=== PATIENT | female | born 1970 | race Caucasian/White ===

== ENCOUNTER 2024-07-02 00:33 | Day surgery (SDC) | payer OTHER, SELFPAY ==
[2024-06-24 11:18] VITALS: BMI 23.6
--- NOTE | 2024-07-01 14:44 | P.PNAN_ITS ---
Anes - Initial Pre Proc Eval Procedure: Operation Date: 07/02/24 12:30 Proposed Procedures p Screening Colonoscopy - Hernesto Conte MD Date/Time: 07/01/24 14:44 Surgeon: Hernesto Conte MD Pre Op Diagnosis: screening colon Patient Data Age: 53 Gender: F Height: 1.52 m Weight: 55 kg Allergies Allergy/AdvReac Type Severity Reaction Status Date / Time No Known Allergies Allergy Verified 07/02/24 11:25 Home Medications ?Medication ?Instructions ?Recorded ?Confirmed ?Type levothyroxine 125 mcg tablet 125 mcg PO DAILY 06/24/24 07/02/24 History Patient hx anesthesia problems: none Family hx anesthesia problems: none Results Review: All pre-operative results and documents have been reviewed as part of the pre- operative evaluation. [facility] Past Medical History Medical History (Updated 07/01/24 @ 14:44 by Baldomero Weaver DO) Hypothyroidism Asthma Social History Social History Smoking packs per day: 0.5 Smoking cigarettes per day: 10.0 Years smoked: 30 Smoking pack-years: 15.00 Smoking status: Current every day smoker Tobacco type: cigarettes Alcohol intake: current Alcohol use details: 7 Spiritual care concerns: No Anes - Eval Final PreProcedure Day of Procedure 07/01/24 14:44 Patient weight: obese Heart: regular rate and rhythm Lungs: clear to auscultation Airway: Mallampati scale class II Neurological: alert and oriented Last oral intake: >/= 8 hours ASA classification: III Emergent: no Anesthetic plan: proceed Anesthesia type and monitoring: general GIVS and standard monitoring Results Review: All pre-operative results and documents have been reviewed as part of the pre- operative evaluation. Informed Consent: The patient's anesthetic plan and its attendant risks and benefits were discussed with the patient/family/POA. Questions were solicited and answers provided to the satisfaction of the patient/family/POA.
--- OUTSIDE RECORDS SUMMARY | 2024-07-02 00:35 | XMS_ITS | Clinical Summary ---
Author Organization [facility] Address [address] [place] [address] Care Team Providers Care Machine Cage Maker Name Role Phone None, Physician Primary Care Provider Unavailabl e Source Comments [facility],non-owned Affiliates and Associated Physician Practices is amultiple site organization consisting of ambulatory clinics and hospital sitesin [place], [place], [place] and [place]. This disclosure is being madepursuant to the Care Everywhere program and may not contain all information available regarding this patient. Last updated 17.[facility] [employer] Allergies Active Allergy Reactions Criticality Noted Date Comments Ampicillin Rash Medium 05/29/2018 Medications * Be aware that medications may not be up to date on this document. Alwaysverify current medications with the patient. levothyroxine (Synthroid) 125 MCG tablet Take 1 (one) tablet by mouth once daily 4 Active EPINEPHrine (Epipen) 0.3 MG/0.3ML auto-injector pen Inject 0.3 mL subcutaneously as directed 4 Active albuterol HFA (Proventil; Ventolin; Proair) 108 (90 Base) MCG/ACT inhaler Inhale 1 (one) puff by mouth as directed 3 Active fluticasone propionate (Flonase) 50 MCG/ACT nasal spray [place] 2 (two) sprays into each nostril once daily 48 g 4 4 Active Active Problems No known active problems Social History Tobacco Use Types Packs/Day Years Used Date Smoking Tobacco: Every Day Cigarettes Smokeless Tobacco: Never Alcohol Use Standard Drinks/Week Comments Yes 0 (1 standard drink = 0.6 oz pur e alcohol) social Comments Unknown Sex and Gender Information Value Date Recorded Sex Assigned at Not on file Legal Sex Female 6:26 AM PIPE FITTER Gender Identity Not on file Sexual Orientation Not on file Last Filed Vital Signs Vital Sign Reading Time Taken Comments Blood Pressure - - Pulse - - Temperature - - Respiratory Rate - - Oxygen Saturation - - Inhaled Oxygen Concentration - - Weight 54.4 kg (120 lb) 07/02/2023 2:23 PM CDT Height 152.4 cm (5') 07/02/2023 2:23 PM CDT Body Mass Index 23.44 07/02/2023 2:23 PM CDT Plan of Treatment Health Maintenance Due Date Last Done Comments COLON MONITORING 1971 COLONOSCOPY - COLON CA SCREENING 1971 CT COLONOGRAPHY - COLON CA SCREENING 1971 FIT - COLON CA SCREENING 1971 FLEX SIG - COLON CA SCREENING 1971 LIPID TESTING 1971 PAP SMEAR 1971 HIV SCREENING 11/02/1986 HEPATITIS C SCREENING 10/29/1989 DTAP/TDAP/TD VACCINES (1 - Tdap) 11/02/1990 HEPATITIS B VACCINE (1 of 3 - 19+ 3-dose series) 11/02/1990 PNEUMOCOCCAL VACCINE 50+ (1 of 2 - PCV) 11/02/1990 ZOSTER VACCINE (1 of 2) 11/02/2021 COVID-19 VACCINE (1 - season) 2023 DEPRESSION SCREENING 03/12/2024 INFLUENZA VACCINE (Season Ended) 2024 COLOGUARD (AGES 45-75) - COLON CA SCREENING 01/04/2025 01/04/2022 Colorectal Cancer Screening 01/04/2025 MAMMOGRAM 02/26/2025 02/26/2023, 02/09, 05/06/2021, Additional history exists HIB VACCINE Aged Out No longer eligi ble based on patient's age to complete this topic HPV VACCINE Aged Out No longer eligi ble based on patient's age to complete this topic MENINGOCOCCAL (Group B) VACCINE SHARED DECISION-MAKING Aged Out No longer eligible based on patient's age to complete this topic MENINGOCOCCAL GROUPS A/C/Y/W VACCINE Aged Out No longer eligible based on patient's age to complete this topic Insurance [facility] Care Teams Machine Cage Maker Relationship Specialty Start Date End Date None, Physician [address] [place] [address] PCP - General 07/02/23
--- OUTSIDE RECORDS SUMMARY | 2024-07-02 00:35 | XMS_ITS | Referral Summary ---
Author Organization [facility] [address] [place] [id number] Care Team Providers Care Cytotechnologist Name Role Phone Nilo Chaves MD Primary Care Provider [phone] Allergies No known active allergies Social History Tobacco Use Types Packs/Day Years Used Date Smoking Tobacco: Never Assessed Comments No Sex and Gender Information Value Date Recorded Sex Assigned at Not on file Legal Sex Female 6:07 PM CORRECTIONAL OFFICER CAPTAIN Gender Identity Not on file Sexual Orientation Not on file Last Filed Vital Signs Vital Sign Reading Time Taken Comments Blood Pressure 104/66 03/21/2020 4:00 AM CORRECTIONAL OFFICER CAPTAIN Pulse 74 03/21/2020 4:00 AM CORRECTIONAL OFFICER CAPTAIN Temperature 36.6 C (97.9 F) 03/21/2020 4:00 AM CORRECTIONAL OFFICER CAPTAIN Respiratory Rate - - Oxygen Saturation 98% 03/21/2020 4:00 AM CORRECTIONAL OFFICER CAPTAIN Inhaled Oxygen Concentration - - Weight 70 kg (154 lb 5.2 oz) 03/21/2020 4:00 AM CORRECTIONAL OFFICER CAPTAIN Height 154.9 cm (5' 1 ) 03/21/2020 4:00 AM CORRECTIONAL OFFICER CAPTAIN Body Mass Index 29.16 03/21/2020 4:00 AM CORRECTIONAL OFFICER CAPTAIN Plan of Treatment Not on file Procedures Procedure Name Priority Date/Time Associated Diagnosis Comments SCREENING MAMMOGRAM BILATERAL W TIMBO Schedule Routine, Read Routine (OP Routine) 02/26/2023 12:57 PM CORRECTIONAL OFFICER CAPTAIN Screening mammogram, encounter for from Last 3 Months or Most Recently Relevant to Health Maintenance Results * Screening Mammogram Bilateral W Timbo (02/26/2023 12:57 PM CORRECTIONAL OFFICER CAPTAIN) Anatomical Region Laterality Modality Breast Bilateral Mammography Impressions 02/26/2023 1:39 PM CORRECTIONAL OFFICER CAPTAIN BI-RADS ATLAS category (overall): 1 - Negative There is no mammographic evidence of malignancy. A 1 year screening mammogram is recommended. The patient has been or will be contacted. We recommend annual screening mammography for women at average risk of breast cancer beginning at age 40, based on guidelines of the [employer] [place] [employer] (ACR Practice Parameter for the Performance of Screening and Diagnostic Mammography) and [place]. For women with and elevated risk of breast cancer, please refer to the ACR Practice Parameter for specific screening recommendations. The patient will be entered into a reminder system with a target due date of 1 year for her next screening exam. Narrative 02/26/2023 1:39 PM CORRECTIONAL OFFICER CAPTAIN Screening Mammogram Bilateral W Timbo: 02/26/23 The study was acquired using full field digital technology and interpreted from soft copy. 2D digital mammographic views, as well as 3D digital tomosynthesis were performed in the CC and MLO projections. CLINICAL: Screening mammogram, encounter for. No relevant medical history has been documented for this patient. History of breast cancer in Neg Hx. COMPARISONS: 02/22/2022 Diagnostic Mammogram Right W Timbo 02/22/2022 US Breast Right Limited 05/06/2021 Screening Mammogram Bilateral W Timbo 09/24/2018 Breast Imaging US Outside Reference 09/24/2018 Breast Imaging Diagnostic Outside Reference 08/13/2018 Breast Imaging Screening Outside Reference BREAST TISSUE: The breasts are extremely dense, which lowers the sensitivity of mammography. FINDINGS: No suspicious masses, suspicious calcifications, or other suspicious findings are seen within either breast. There has been no suspicious change. us Self Screening Mammogram IMG MAMMO PROCEDURES Fi nal Result from Last 3 Months or Most Recently Relevant to Health Maintenance Insurance [facility] Care Teams Cytotechnologist Relationship Specialty Start Date End Date Nilo Chaves MD PCP - General Family Medicine 02/07/22
--- OUTSIDE RECORDS SUMMARY | 2024-07-02 00:35 | XMS_ITS | Clinical Summary ---
Author Organization [facility] [address] [place] [id number] Care Team Providers Care Wirer Passenger Car Name Role Phone Nilo Chaves MD Primary Care Provider [phone] Allergies No known active allergies Family History Medical History Relation Name Comments Breast cancer Neg Hx Social History Tobacco Use Types Packs/Day Years Used Date Smoking Tobacco: Never Assessed Comments No Sex and Gender Information Value Date Recorded Sex Assigned at Not on file Legal Sex Female 6:07 PM HEAD KNITTING MACHINE FIXER Gender Identity Not on file Sexual Orientation Not on file Obstetrics History Para Term AB IAB SAB Ectopic Multiple Livin g Live Births 2 2 2 Date Outcome GA Total Labor Labor/2nd/3rd Weight Sex Type Anes PTL Ivon A1 A5 Name Clin Term Term Last Filed Vital Signs Vital Sign Reading Time Taken Comments Blood Pressure 104/66 03/21/2020 4:00 AM HEAD KNITTING MACHINE FIXER Pulse 74 03/21/2020 4:00 AM HEAD KNITTING MACHINE FIXER Temperature 36.6 C (97.9 F) 03/21/2020 4:00 AM HEAD KNITTING MACHINE FIXER Respiratory Rate - - Oxygen Saturation 98% 03/21/2020 4:00 AM HEAD KNITTING MACHINE FIXER Inhaled Oxygen Concentration - - Weight 70 kg (154 lb 5.2 oz) 03/21/2020 4:00 AM HEAD KNITTING MACHINE FIXER Height 154.9 cm (5' 1 ) 03/21/2020 4:00 AM HEAD KNITTING MACHINE FIXER Body Mass Index 29.16 03/21/2020 4:00 AM HEAD KNITTING MACHINE FIXER Plan of Treatment Health Maintenance Due Date Last Done Comments Cervical Cancer Screening 1971 Colon Cancer Screening-Colonoscopy 1971 Depression Screening 1971 Hepatitis C Screening 1971 Hepatitis B Screening 11/02/1989 Regular Well Visit/Exam 18-64 11/02/1989 Zoster Vaccine (1 of 2) 11/02/2021 Covid-19 Vaccine (2 - 2023-2 5 season) 2023 10/22/2020 Influenza Vaccine (#1) 2023 Breast Cancer Screening-Mammogram 02/27/2024 02/26/2023, 05/06/2021, 08/13/2018 DTaP/Tdap/Td Vaccine (2 - Td or Tdap) 03/21/2030 03/21/2020 Pneumococcal vaccine <65 Aged Out No longer eligible based on patient's age to complete this topic Procedures Procedure Name Priority Date/Time Associated Diagnosis Comments SCREENING MAMMOGRAM BILATERAL W TIMBO Schedule Routine, Read Routine (OP Routine) 02/26/2023 12:57 PM HEAD KNITTING MACHINE FIXER Screening mammogram, encounter for from Last 3 Months or Most Recently Relevant to Health Maintenance Results * Screening Mammogram Bilateral W Timbo (02/26/2023 12:57 PM HEAD KNITTING MACHINE FIXER) Anatomical Region Laterality Modality Breast Bilateral Mammography Impressions 02/26/2023 1:39 PM HEAD KNITTING MACHINE FIXER BI-RADS ATLAS category (overall): 1 - Negative There is no mammographic evidence of malignancy. A 1 year screening mammogram is recommended. The patient has been or will be contacted. We recommend annual screening mammography for women at average risk of breast cancer beginning at age 40, based on guidelines of the [employer] (ACR Practice Parameter for the Performance of Screening and Diagnostic Mammography) and [employer]. For women with and elevated risk of breast cancer, please refer to the ACR Practice Parameter for specific screening recommendations. The patient will be entered into a reminder system with a target due date of 1 year for her next screening exam. Narrative 02/26/2023 1:39 PM HEAD KNITTING MACHINE FIXER Screening Mammogram Bilateral W Timbo: 02/26/23 The [...] Most Recently Relevant to Health Maintenance Insurance [facility] Care Teams Wirer Passenger Car Relationship Specialty Start Date End Date Nilo Chaves MD PCP - General Family Medicine 02/07/22
--- OUTSIDE RECORDS SUMMARY | 2024-07-02 00:35 | XMS_ITS | Clinical Summary ---
Author Organization [facility] Address [facility] [place] [address] Care Team Providers Care Audit Machine Operator Name Role Phone New Referring, Provider Primary Care Provider Un available Allergies Active Allergy Reactions Criticality Noted Date Comments Ampicillin Rash Low 05/29/2018 Medications levothyroxine 137 MCG tablet Take 1 tablet (137 mcg total) by mouth daily. 2 9 Active albuterol (2.5 MG/3ML) 0.083% nebulizer solution Take 3 mLs (2.5 mg total) by nebulization every 6 (six) hours as needed for Wheezing or Shortness of breath. 360 mL 9 Active butalbital-acet aminophen-caffe ine (FIORICET) 50-300-40 MG capsule Take 1 capsule by mouth every 4 (four) hours as needed for Pain. 30 capsule 3 Active Family History Medical History Relation Comments Stroke Father Diabetes Mother Relation Status Comments Father Mother Alive Social History Tobacco Use Types Packs/Day Years Used Date Smoking Tobacco: Every Day Cigarettes Smokeless Tobacco: Never Alcohol Use Standard Drinks/Week Comments Yes 3.3 (1 standard drink = 0.6 oz p ure alcohol) OCCAS Comments No Sex and Gender Information Value Date Recorded Sex Assigned at Not on file Legal Sex Female 6:12 PM CDT Gender Identity Not on file Sexual Orientation Not on file Last Filed Vital Signs Vital Sign Reading Time Taken Comments Blood Pressure 135/75 02/18/2023 4:07 AM FABRICATION INSPECTOR Pulse 98 02/18/2023 4:07 AM FABRICATION INSPECTOR Temperature 37.4 C (99.4 F) 02/18/2023 4:07 AM FABRICATION INSPECTOR Respiratory Rate 16 02/18/2023 4:07 AM FABRICATION INSPECTOR Oxygen Saturation 96% 02/18/2023 4:07 AM FABRICATION INSPECTOR Inhaled Oxygen Concentration - - Weight 56.7 kg (125 lb) 02/18/2023 4:07 AM FABRICATION INSPECTOR Height 152.4 cm (5') 02/18/2023 4:07 AM FABRICATION INSPECTOR Body Mass Index 24.41 02/18/2023 4:07 AM FABRICATION INSPECTOR Plan of Treatment Health Maintenance Due Date Last Done Comments Cervical Cancer Screening Pa p Smear (Age 30 to 64) Every 3 Years 1971 Colorectal Cancer Screening Colonoscopy (10 Years) 1971 Annual Physical 11/02/1974 Hepatitis C 11/02/1989 Hepatitis B Vaccines (1 of 3 - 19+ 3-dose series) 11/02/1990 Pneumococcal Vaccine: 50+ Years (1 of 2 - PCV) 11/02/1990 Cervical Cancer Screening Pa p with HPV Testing (Age 30 to 64) Every 5 Years 11/02/2001 Cervical Cancer Screening wi th HPV 11/02/2001 Mammogram Screening 09/24/2020 09/24/2018, 08/13/2018 Zoster Vaccines (1 of 2) 11/02/2021 COVID-19 Vaccine (2 - 2023-2 5 season) 2023 10/22/2020 DTaP, Tdap and Td Vaccines ( 2 - Td or Tdap) 03/21/2030 03/21/2020 Meningococcal B Vaccine Aged Out No l onger eligible based on patient's age to complete this topic Meningococcal Vaccine Aged Out No huey mouna eligible based on patient's age to complete this topic RSV Immunizations Under 20 Months Aged Out No longer eligible b ased on patient's age to complete this topic Procedures Procedure Name Priority Date/Time Associated Diagnosis Comments MG DIAGNOSTIC MADDI DIGI Routine 09/24/2018 1:07 PM CDT Abnormal mammogram from Last 3 Months or Most Recently Relevant to Health Maintenance Results * MG DIAGNOSTIC MADDI DIGI (09/24/2018 1:07 PM CDT) Anatomical Region Laterality Modality Breast Bilateral Mammography 09/24/2018 1:37 PM CDT Impressions 09/24/2018 1:40 PM CDT ===== IMPRESSION: ===== 1. Focal asymmetries in the bilateral breasts are now better seen as summation artifact from normal dense tissue. 2. Calcifications in the right breast are partially benign and partially too small to characterize. Assessment: ACR BI-RADS Category 3 - Probably benign. Recommendation: 1: Follow-up diagnostic mammogram right in 6 months Examination: Breast ultrasound Findings: See combined report above. Examination: Breast ultrasound Findings: See combined report above. Comments: Please repeat spot magnification views of right breast calcifications Narrative 09/24/2018 1:40 PM CDT Examination: Bilateral diagnostic mammogram with bilateral breast ultrasound. [id number], [id number] Exam Date/Time: 09/24/2018 12:38 PM Clinical history: Left-sided and one right-sided focal asymmetries. Calcification cluster in the right breast. Comparison: Baseline screening mammogram 08/13/2018 Technique: Digital bilateral diagnostic mammography and bilateral breast ultrasound was performed. This study was read with the assistance of a computer-aided detection system. Tissue density: The breast tissue is extremely dense. Findings: The areas of increased breast tissue density in the upper outer quadrants in the inferior left breast have stable appearance from the prior screening exam. On spot compression imaging, there is no persisting underlying abnormal mass appreciated. Uncertain ultrasound evaluation of each of these 3 areas is seen only normal breast tissue parenchyma. No abnormal cystic or masslike lesions. No hyperemia. The calcification cluster in the upper outer right breast is again seen and on magnification views shows multiple benign punctate and coarse calcifications as well as multiple calcifications which are small to characterize. [facility] Final Result from Last 3 Months or Most Recently Relevant to Health Maintenance Insurance Care Teams Audit Machine Operator Relationship Specialty Start Date End Date New Referring, Provider PCP - General UNKNOWN PHYSICIAN SPECIALTY 05/29/18
[2024-07-02 11:28] VITALS: BP 143/84; PULSE 84; RESP 16; TEMP 36.6; O2SAT 99
[2024-07-02 11:35] LABS: BEDSIDEPREGUCG Negative (Negative)
[2024-07-02] MEDS: LACTATED RINGERS 1,000 ML 150 ML IV CONT (11:40)
--- NOTE | 2024-07-02 12:40 | PM.IMHP ---
H&P: HPI History of Present Illness Date/Time: 07/02/24 12:40 Chief Complaint: Screening colonoscopy Narrative: This is the patient's first colonoscopy. There are no GI symptoms and there is no family history of colorectal cancer. Review of Systems Review of Systems: All systems reviewed & are unremarkable except as noted in HPI and below PMFSH Past Medical History Medical History (Updated 07/02/24 @ 12:40 by Hernesto Conte MD) Hypothyroidism Asthma Social History Social History Smoking packs per day: 0.5 Smoking cigarettes per day: 10.0 Years smoked: 30 Smoking pack-years: 15.00 Smoking status: Current every day smoker Tobacco type: cigarettes Alcohol intake: current Alcohol use details: 7 Spiritual care concerns: No Meds Home Medications and Allergies Home Medications ?Medication ?Instructions ?Recorded ?Confirmed ?Type levothyroxine 125 mcg tablet 125 mcg PO DAILY 06/24/24 07/02/24 History Allergies Allergy/AdvReac Type Severity Reaction Status Date / Time No Known Allergies Allergy Verified 07/02/24 11:25 Vital Signs Vital Signs - 24 hr 07/02/24 11:28 Temperature 97.8 F Pulse Rate 84 Respiratory Rate 16 Blood Pressure 143/84 H Pulse Oximetry 99 Oxygen Delivery Room Air Exam Const: General: cooperative and healthy appearing Resp: Effort & Inspection: normal respiratory effort and able to speak in complete sentences Auscultation: clear to auscultation bilaterally Cardio: Rate: regular rate Rhythm: regular rhythm GI: Inspection: normal to inspection GI Palp: No No hepatosplenomegaly present Auscultation: normal bowel sounds Rectal Exam: deferred Skin: General skin exam: normal color Psych: Appearance: grossly normal Mental Status: mental status grossly normal Assessment and Plan Assessment and plan (1) Encounter for screening colonoscopy: Code(s): Z12.11 - Encounter for screening for malignant neoplasm of colon Status: Acute Assessment and Plan: The patient is deemed a good candidate for the procedure. Consent signed. Will proceed.
[2024-07-02 13:11] VITALS: BP 120/85; PULSE 76; RESP 20; O2SAT 98
[2024-07-02 13:21] VITALS: BP 123/87; PULSE 69; RESP 20; O2SAT 99
[2024-07-02 13:32] VITALS: BP 132/93; PULSE 67; RESP 19; O2SAT 100
== END 2024-07-02 13:40 | disposition home or self-care (01) ==
PROVIDERS: Anesthesiology; Visit Provider Internal Medicine Gastroenterology
PROC: 0DJD8ZZ Inspection of Lower Intestinal Tract, Via Natural or Artificial Opening Endoscopic (ICD-10-PCS; CPT 45378; principal; 2024-07-02 12:30)
DX: Z12.11 Encounter for screening for malignant neoplasm of colon (principal); D12.4 Benign neoplasm of descending colon; K64.8 Other hemorrhoids; K57.30 Diverticulosis of large intestine without perforation or abscess without bleeding; E03.9 Hypothyroidism, unspecified; J45.909 Unspecified asthma, uncomplicated; F17.210 Nicotine dependence, cigarettes, uncomplicated; E66.9 Obesity, unspecified; Z68.32 Body mass index [BMI] 32.0-32.9, adult
CPT/HCPCS: 45385; 88305; J2003; J2704; J7120